=== PATIENT | female | born 1960 | race Caucasian/White ===

== ENCOUNTER → 2017-10-05 | Outpatient (CLI) | payer OTHER ==
--- NOTE | 2017-10-05 09:10 | BD ---
EXAMINATION TYPE: MG DEXA axial skeleton. DATE OF EXAM: 10/05/2017 COMPARISON: 09/29/2013 CLINICAL HISTORY: Postmenopausal female Height: 66 IN Weight: 141 LBS FRAX RISK QUESTIONS: Alcohol (3 or more units per day): NO Family History (Parent hip fracture): NO Glucocorticoids (More than 3mos): NO (Ex: prednisone, prednisolone, methylprednisolone, dexamethasone, and hydrocortisone). History of Fracture in Adulthood: NO Secondary Osteoporosis: 1. Type 1 Diabetes: NO 2. Hyperthyroidism: NO 3. Menopause before 45: NO 4. Malnutrition: NO 5. Chronic liver disease: NO Rheumatoid Arthritis: NO Current Tobacco Use: NO RISK FACTORS HISTORY OF: Active: YES Postmenopausal woman: AGE 50 MEDICATIONS: Additional Medications: NONE EXAM MEASUREMENTS: Bone mineral densitometry was performed using the Leevia System. Bone mineral density as measured about the Lumbar spine is: ----- L1-L4(G/cm2): 1.084 T Score Values are as follows: ----- L2: -0.8 ----- L3: -1.2 ----- L4: -1.2 ----- L1-L4: -0.8 Bone mineral density has: Decreased -2.5% since study of: 09/29/2013 Bone mineral density about the R hip (g/cm2): 0.883 Bone mineral density about the L hip (g/cm2): 0.834 T Score values are as follows: -----R Neck: -1.1 -----L Neck: -1.5 -----R Total: -0.8 -----L Total: -1.2 Bone mineral density has: Decreased -5.9% since study of: 09/29/2013 IMPRESSION: Osteopenia (T Score between -2.5 and -1 as noted by T score values There is slightly increased risk of fracture and the patient may be considered for treatment. Re-Screen 2-5 years. NOTE: T-SCORE=SD OF THE YOUNG ADULT MEAN.
--- NOTE | 2017-10-08 10:34 | MM ---
Reason for exam: screening (asymptomatic). Last mammogram was performed 1 year and 1 month ago. History: Patient is postmenopausal. Physical Findings: A clinical breast exam by your physician is recommended on an annual basis and results should be correlated with mammographic findings. MG 3D Screening Mammo W/Cad Bilateral CC and MLO view(s) were taken. Prior study comparison: September 07, 2016, bilateral MG screening mammo w CAD. July 01, 2015, bilateral MG screening mammo w CAD. The breast tissue is heterogeneously dense. This may lower the sensitivity of mammography. Stable benign calcifications in the right breast. There is chronic nodularity bilaterally. No significant changes when compared with prior studies. ASSESSMENT: Benign, BI-RAD 2 RECOMMENDATION: Routine screening mammogram of the right breast in 1 year.
== END | disposition home or self-care (01) ==
LOC: RADMAMWWP 08:13
PROVIDERS: ATTEND Obstetrics & Gynecology
DX: Z12.31 Encounter for screening mammogram for malignant neoplasm of breast (principal); M85.852 Other specified disorders of bone density and structure, left thigh; M85.851 Other specified disorders of bone density and structure, right thigh; M85.88 Other specified disorders of bone density and structure, other site
CPT/HCPCS: 77080; 77063; G0202

== ENCOUNTER → 2018-12-26 | Outpatient (CLI) | payer OTHER ==
--- NOTE | 2018-12-30 08:33 | MM ---
Reason for exam: screening (asymptomatic). Last mammogram was performed 1 year and 3 months ago. History: Patient is postmenopausal. Physical Findings: A clinical breast exam by your physician is recommended on an annual basis and results should be correlated with mammographic findings. MG Screening Mammo w CAD Bilateral CC and MLO view(s) were taken. XCCL view(s) were taken of the right breast. Prior study comparison: October 05, 2017, bilateral MG 3d screening mammo w/cad. September 07, 2016, bilateral MG screening mammo w CAD. The breast tissue is heterogeneously dense. This may lower the sensitivity of mammography. Finding: There are typically benign dystrophic, round calcifications in both breasts. There is no discrete abnormality. ASSESSMENT: Benign, BI-RAD 2 RECOMMENDATION: Routine screening mammogram of both breasts in 1 year.
== END | disposition home or self-care (01) ==
LOC: RADMAMWWP 07:59
PROVIDERS: ATTEND Obstetrics & Gynecology
DX: Z12.31 Encounter for screening mammogram for malignant neoplasm of breast (principal)
CPT/HCPCS: 77067

== ENCOUNTER 2019-11-25 01:31 | Emergency (ER) | payer OTHER, BC ==
--- NOTE | 2019-11-25 02:30 | ED ---
Chest Pain HPI - General Chief Complaint: Chest Pain Stated Complaint: Chest Tightness Source: patient, family Mode of arrival: ambulatory Limitations: no limitations - History of Present Illness Initial Comments: 's patient is a 59-year-old woman who presents with chest pain that it started approximately 4 hours prior to arrival here. She states it is across the chest. It felt like a heavy feeling. She states that it came on while she was lying down. She did note that it was worse if she tried to lie on her side. She did not note any relieving factors. Patient did not have any associated symptoms. The patient does note that the pain has resolved, after her arrival here. MD Complaint: chest pain -: hour(s) Onset: during rest Pain Location: left chest, right chest Pain Radiation: none Severity: mild Quality: heaviness Consistency: now resolved Improves With: nothing Worsens With: nothing Treatments Prior to Arrival: none - Related Data On Oral Contraceptives: No Allergies Allergy/AdvReac Type Severity Reaction Status Date / Time No Known Allergies Allergy Verified 11/25/19 01:38 Review of Systems ROS Statement: Those systems with pertinent positive or pertinent negative responses have been documented in the HPI. ROS Other: All systems not noted in ROS Statement are negative. Constitutional: Denies: fever, chills Respiratory: Denies: cough, dyspnea Cardiovascular: Reports: chest pain. Denies: palpitations, orthopnea, edema, syncope Gastrointestinal: Denies: abdominal pain, nausea, vomiting Musculoskeletal: Denies: back pain Skin: Denies: rash Neurological: Denies: headache, weakness EKG Findings - EKG Results: EKG: interpreted by ERMD, sinus rhythm (Rate 62 bpm), normal axis, normal QRS, normal ST/T Past Medical History Past Medical History: No Reported History History of Any Multi-Drug Resistant Organisms: None Reported Past Surgical History: Section Past Psychological History: No Psychological Hx Reported Smoking Status: Never smoker Past Alcohol Use History: None Reported Past Drug Use History: None Reported General Exam Limitations: no limitations General appearance: alert, in no apparent distress Head exam: Present: atraumatic, normocephalic Eye exam: Present: normal appearance. Absent: scleral icterus, conjunctival injection ENT exam: Present: normal oropharynx Neck exam: Present: normal inspection Respiratory exam: Present: normal lung sounds bilaterally. Absent: respiratory distress, wheezes, rales, rhonchi, stridor, chest wall tenderness, accessory muscle use, decreased breath sounds, prolonged expiratory Cardiovascular Exam: Present: regular rate, normal rhythm, normal heart sounds. Absent: systolic murmur, diastolic murmur, rubs, gallop GI/Abdominal exam: Present: soft. Absent: distended, tenderness, guarding, rebound, rigid, mass Extremities exam: Present: normal inspection, normal capillary refill. Absent: pedal edema, calf tenderness Back exam: Present: normal inspection. Absent: CVA tenderness (R), CVA tenderness (L) Neurological exam: Present: alert Skin exam: Present: warm, dry, intact, normal color. Absent: rash Course Vital Signs 11/25/19 11/25/19 11/25/19 01:34 05:38 06:00 Temperature 98.1 F 98.3 F 97.7 F Pulse Rate 74 77 74 Respiratory 20 20 18 Rate Blood Pressure 164/87 123/81 127/79 O2 Sat by Pulse 99 97 97 Oximetry 11/25/19 07:00 Temperature 97.6 F Pulse Rate 62 Respiratory 20 Rate Blood Pressure 132/80 O2 Sat by Pulse 97 Oximetry Disposition Clinical Impression: Chest pain Disposition: HOME SELF-CARE Condition: Good Instructions (If sedation given, give patient instructions): Chest Pain (ED) Is patient prescribed a controlled substance at d/c from ED?: No Referrals: Christina Yost MD [Primary Care Provider] - 1-2 days Dipika Hooper MD [STAFF PHYSICIAN] - 1-2 days
[2019-11-25 03:32] LABS: Basophils % (A) 1 %; Eosinophils # (A) 0.2 k/uL (0-0.7); Eosinophils % (A) 4 %; HCT 38.7 % (34.0-46.0); HGB 13.5 gm/dL (11.4-16.0); Lymphocytes # (A) 1.6 k/uL (1.0-4.8); Lymphocytes % (A) 24 %; MCH 29.9 pg (25.0-35.0); MCHC 34.9 g/dL (31.0-37.0); MCV 85.7 fL (80.0-100.0); Mean Platelet Volume 8.3; Monocytes # (A) 0.4 k/uL (0-1.0); Monocytes % (A) 6 %; Neutrophils # (A) 4.1 k/uL (1.3-7.7); Neutrophils % (A) 64 %; Platelet Count 175 k/uL (150-450); RBC 4.52 m/uL (3.80-5.40); RDW 12.2 % (11.5-15.5); WBC 6.4 k/uL (3.8-10.6)
[2019-11-25 03:41] LABS: ALT 19 U/L (4-34); AST 28 U/L (14-36); African American GFR (CKD) >90 (>60 ml/min/1.73 sqM); Albumin 4.3 g/dL (3.5-5.0); Alkaline Phosphatase 103 U/L (38-126); Amylase 111 U/L (30-110); Anion Gap 7 mmol/L; Blood Urea Nitrogen 21 mg/dL (7-17); Calcium 10.3 mg/dL (8.4-10.2); Carbon Dioxide 27 mmol/L (22-30); Chloride 105 mmol/L (98-107); Glucose 106 mg/dL (74-99); Magnesium 2.1 mg/dL (1.6-2.3); Non-African American GFR(CKD) >90 (>60 ml/min/1.73 sqM); Potassium 4.2 mmol/L (3.5-5.1); Sodium 139 mmol/L (137-145); Total Bilirubin 0.4 mg/dL (0.2-1.3); Total Protein 7.3 g/dL (6.3-8.2)
--- NOTE | 2019-11-25 03:44 | XR ---
EXAMINATION TYPE: XR chest 2V DATE OF EXAM: 11/25/2019 COMPARISON: NONE HISTORY: Chest pain TECHNIQUE: 2 views FINDINGS: Heart and mediastinum are normal. Lungs are clear. Diaphragm is normal. Bony thorax appears intact. There is no pleural effusion. IMPRESSION: No cardiopulmonary disease.
[2019-11-25 03:48] LABS: INR 0.9 (<1.2); Partial Thromboplastin Time 24.9 sec (22.0-30.0); Prothrombin Time 9.7 sec (9.0-12.0)
[2019-11-25 03:50] LABS: D-Dimer 1.03 mg/L FEU (<0.60)
[2019-11-25 07:06] VITALS: BP 132/80; PULSE 62; RESP 20; TEMP 97.6
== END 2019-11-25 07:16 | disposition home or self-care (01) ==
LOC: EC 01:31
DX: R07.9 Chest pain, unspecified (principal)
CPT/HCPCS: 36415; 71046; 80053; 82150; 83690; 83735; 84484; 85025; 85379; 85610; 85730; 93005; 99285

== ENCOUNTER → 2021-04-08 | Outpatient (CLI) | payer OTHER, BC ==
--- NOTE | 2021-04-13 10:17 | MM ---
Reason for exam: screening (asymptomatic). Last mammogram was performed 2 years and 3 months ago. History: Patient is postmenopausal. Physical Findings: A clinical breast exam by your physician is recommended on an annual basis and results should be correlated with mammographic findings. MG 3D Screening Mammo W/Cad Bilateral CC and MLO view(s) were taken. Prior study comparison: December 26, 2018, bilateral MG screening mammo w CAD. October 05, 2017, bilateral MG 3d screening mammo w/cad. The breast tissue is extremely dense which could obscure a lesion on mammography. ASSESSMENT: Benign, BI-RAD 2 RECOMMENDATION: Routine screening mammogram of both breasts in 1 year.
== END | disposition home or self-care (01) ==
LOC: RADMAMWWP 11:08
PROVIDERS: ATTEND Obstetrics & Gynecology
DX: Z12.31 Encounter for screening mammogram for malignant neoplasm of breast (principal); Z78.0 Asymptomatic menopausal state
CPT/HCPCS: 77063; 77067

== ENCOUNTER → 2022-01-26 | Outpatient (CLI) | payer OTHER ==
--- NOTE | 2022-01-26 17:00 | ECHOF ---
Referral Reason:R06.09 Other forms of dyspnea MEASUREMENTS -------- HEIGHT: 167.6 cm WEIGHT: 62.6 kg BP: 131/77 RVIDd: 2.6 cm (< 3.3) IVSd: 0.9 cm (0.6 - 1.1) LVIDd: 3.8 cm (3.9 - 5.3) LVPWd: 0.9 cm (0.6 - 1.1) IVSs: 1.3 cm LVIDs: 2.5 cm LVPWs: 1.5 cm LA Diam: 3.0 cm (2.7 - 3.8) LAESV Index (A-L): 20.65 ml/m Ao Diam: 2.7 cm (2.0 - 3.7) AV Cusp: 1.8 cm (1.5 - 2.6) MV EXCURSION: 14.946 mm (> 18.000) MV EF SLOPE: 108 mm/s (70 - 150) EPSS: 0.2 cm MV E Claudio: 1.01 m/s MV DecT: 204 ms MV A Claudio: 0.65 m/s MV E/A Ratio: 1.57 AR PHT: 556 ms RAP: 5.00 mmHg RVSP: 23.29 mmHg FINDINGS -------- Sinus rhythm. This was a technically good study. The left ventricular size is normal. Left ventricular wall thickness is normal. Overall left vent ricular systolic function is normal with, an EF between 55 - 60 %. The right ventricle is normal in size. Normal LA size by volume 22+/-6 ml/m2. The right atrium is normal in size. Interatrial and interventricular septum intact. Trace to mild aortic regurgitation. There is trace mitral regurgitation. Mild tricuspid regurgitation present. Right ventricular systolic pressure is normal at < 35 mmHg. The pulmonic valve is normal. The aortic root size is normal. Normal inferior vena cava with normal inspiratory collapse consistent with estimated right atrial pre ssure of 5 mmHg. There is no pericardial effusion. CONCLUSIONS -------- 1. The left ventricular size is normal. 2. Left ventricular wall thickness is normal. 3. Overall left ventricular systolic function is normal with, an EF between 55 - 60 %. 4. Trace to mild aortic regurgitation. 5. There is trace mitral regurgitation. 6. Mild tricuspid regurgitation present. 7. There is no pericardial effusion. [employer] BACK TENDER: Livia Rawls RDCS
== END | disposition home or self-care (01) ==
LOC: RADECHMAIN 14:41
PROVIDERS: ATTEND Family Medicine
DX: I08.3 Combined rheumatic disorders of mitral, aortic and tricuspid valves (principal)
CPT/HCPCS: 93306

== ENCOUNTER → 2022-05-25 | Outpatient (CLI) | payer OTHER ==
--- NOTE | 2022-05-26 09:19 | MM ---
Reason for Exam: Screening (asymptomatic). Last mammogram was performed 1 year(s) and 2 month(s) ago. Patient History: Menarche at age 15. First Full-Term at age 23. Postmenopausal. Risk Values: Shanika 5 year model risk: 1.2%. NCI Lifetime model risk: 5.8%. Prior Study Comparison: 10/05/2017 Bilateral Screening Mammogram, [facility]. 12/26/2018 Bilateral Screening Mammogram, [facility]. 04/08/2021 Bilateral Screening Mammogram, [facility]. Tissue Density: The breast tissue is heterogeneously dense. This may lower the sensitivity of mammography. Findings: Analyzed By CAD. There are a few scattered benign-appearing calcifications bilaterally redemonstrated. There is no suspicious group of microcalcifications or new suspicious mass in either breast. Overall Assessment: Benign, BI-RAD 2 Management: Screening Mammogram of both breasts in 1 year. Some advise bilateral breast ultrasound surveillance in patients with background dense tissue. Electronically signed and approved by: Gerardo Tidwell M.D.
== END | disposition home or self-care (01) ==
LOC: RADMAMWWP 10:47
PROVIDERS: ATTEND Obstetrics & Gynecology
DX: Z12.31 Encounter for screening mammogram for malignant neoplasm of breast (principal); Z78.0 Asymptomatic menopausal state
CPT/HCPCS: 77063; 77067

== ENCOUNTER 2022-10-24 08:22 | Day surgery (SDC) | payer OTHER ==
[~2022-10-24 08:22] MED LIST: LACTATED RINGERS 1,000 ML IV SCH; LIDOCAINE 1% (10MG/ML) FOR IV START INTRADERMA PRN
[2022-10-24 09:22] VITALS: TEMP 97.7
[2022-10-24] MEDS ORDERED: PROPOFOL 10 MG/ML 20 ML VIAL IV ONE (09:47)
--- NOTE | 2022-10-24 09:50 | P.GSHP ---
History of Present Illness H&P Date: 10/24/22 Chief Complaint: Colon cancer screening 62-year-old female here today for colonoscopy. Last colonoscopy 10-12 years ago. No bowel complaints. Family history of colon cancer in her father. Past Medical History Past Medical History: No Reported History History of Any Multi-Drug Resistant Organisms: None Reported Past Surgical History: Section Past Anesthesia/Blood Transfusion Reactions: No Reported Reaction Smoking Status: Never smoker Medications and Allergies Home Medications Medication Instructions Recorded Confirmed Type No Known Home Medications 01/09/22 10/24/22 History Allergies Allergy/AdvReac Type Severity Reaction Status Date / Time No Known Allergies Allergy Verified 10/24/22 09:19 Surgical - Exam Vital Signs Temp Pulse Resp BP Pulse Ox 97.7 F 66 18 122/66 98 10/24/22 09:16 10/24/22 09:16 10/24/22 09:16 10/24/22 09:16 10/24/22 09:16 Physical exam: General: Well-developed, well-nourished HEENT: Normocephalic, sclerae nonicteric Abdomen: Nontender, nondistended Extremities: No edema Neuro: Alert and oriented Assessment and Plan (1) Colon cancer screening Narrative/Plan: Will proceed with colonoscopy at this time. Current Visit: Yes Status: Acute Code(s): Z12.11 - ENCOUNTER FOR SCREENING FOR MALIGNANT NEOPLASM OF COLON SNOMED Code(s): 901222714
--- NOTE | 2022-10-24 10:14 | P.PCN ---
Date of Procedure: 10/24/22 Procedure(s) Performed: PREOPERATIVE DIAGNOSIS: Colon cancer screening, family history of colon cancer POSTOPERATIVE DIAGNOSIS: Small ascending colon polyp, tortuous colon PROCEDURE: Colonoscopy with biopsy ANESTHESIA: MAC SURGEON: Hank Avina M.D. SPECIMENS: Polyp ENDOSCOPIC PROCEDURE: The patient was placed on the endoscopy table in the left decubitus position. The Olympus colonoscope was inserted into the anus and passed under direct visualization to the base of the cecum. The appendiceal orifice was visualized. From that point the scope was slowly withdrawn inspecting all surfaces carefully. There were no neoplastic inflammatory or polypoid lesions throughout the cecum. In the ascending colon a small polyp was seen and removed using the snare with cautery technique. The remainder of the ascending transverse descending sigmoid and rectum appeared normal. There was no visible diverticulosis. The patient's colon was quite tortuous. Digital rectal examination was normal. The patient was taken to the recovery room in stable condition per anesthesia guidelines. RECOMMENDATIONS: Resume diet. Await biopsy results. Repeat colonoscopy 5 years.
[2022-10-24 10:29] VITALS: RESP 16
[2022-10-24 10:33] VITALS: BP 126/83; PULSE 72
== END 2022-10-24 10:57 | disposition home or self-care (01) ==
LOC: ORWHC2ENDO 08:22
PROVIDERS: ATTEND Surgery
DX: Z12.11 Encounter for screening for malignant neoplasm of colon (principal); D12.2 Benign neoplasm of ascending colon; Z80.0 Family history of malignant neoplasm of digestive organs
CPT/HCPCS: 88305; 45380; J2704

== ENCOUNTER → 2023-05-29 | Outpatient (CLI) | payer BC ==
--- NOTE | 2023-05-30 10:10 | MM ---
Reason for Exam: Screening (asymptomatic). Last screening mammogram was performed 12 month(s) ago. Patient History: Menarche at age 15. First Full-Term at age 23. Postmenopausal. Risk Values: Shanika 5 year model risk: 1.2%. NCI Lifetime model risk: 5.7%. Prior Study Comparison: 12/26/2018 Bilateral Screening Mammogram, [facility]. 04/08/2021 Bilateral Screening Mammogram, [facility]. 05/25/2022 Bilateral MG 3D screening mammo w/cad, [facility]. Tissue Density: The breast tissue is extremely dense which could obscure a lesion on mammography. Findings: Analyzed By CAD. There appears symmetrical and stable. No significant interval change is evident. Benign calcifications in the right breast. No suspicious groups of microcalcifications, spiculated or lobular masses, architectural distortion or other secondary signs of malignancy are mammographically apparent. Overall Assessment: Benign, BI-RAD 2 Management: Screening Mammogram of both breasts in 1 year. A negative mammogram report should not preclude additional follow up of suspicious palpable abnormalities. Patient should continue monthly self breast exam. A clinical breast exam by your physician is recommended on an annual basis and results should be correlated with mammographic findings. Electronically signed and approved by: Michael Velasquez D.O. Radiologis
== END | disposition home or self-care (01) ==
LOC: RADMAMWWP 10:54
PROVIDERS: ATTEND Family Medicine
DX: Z12.31 Encounter for screening mammogram for malignant neoplasm of breast (principal); Z78.0 Asymptomatic menopausal state
CPT/HCPCS: 77063; 77067

== ENCOUNTER → 2024-06-05 | Outpatient (CLI) | payer BC, OTHER ==
--- NOTE | 2024-06-08 11:45 | MM ---
Reason for Exam: Screening (asymptomatic). Last screening mammogram was performed 12 month(s) ago. Patient History: Menarche at age 15. First Full-Term at age 23. Postmenopausal. Risk Values: Shanika 5 year model risk: 1.3%. NCI Lifetime model risk: 5.5%. Prior Study Comparison: 04/08/2021 Bilateral Screening Mammogram, [facility]. 05/25/2022 Bilateral MG 3D screening mammo w/cad, [facility]. 05/29/2023 Bilateral MG 3D screening mammo w/cad, [facility]. Tissue Density: The breasts are extremely dense, which lowers the sensitivity of mammography. Findings: Analyzed By CAD. The pattern is symmetrical. No significant interval change No suspicious groups of microcalcifications, spiculated or lobular masses, architectural distortion or other secondary signs of malignancy are mammographically apparent. Overall Assessment: Benign, BI-RAD 2 Management: Screening Mammogram of both breasts in 1 year. A negative mammogram report should not preclude additional follow up of suspicious palpable abnormalities. Patient should continue monthly self breast exam. A clinical breast exam by your physician is recommended on an annual basis and results should be correlated with mammographic findings. Note on Shanika scores and lifetime risk: 1. A Shanika score greater than 3% is considered moderate risk. If this is the case, consider specialist referral to assess eligibility for a risk reducing agent. 2. If overall lifetime risk for the development of breast cancer is 20% or higher, the patient may qualify for future screening with alternating mammogram and breast MRI. Electronically signed and approved by: Michael Velasquez D.O. Radiologis
== END | disposition home or self-care (01) ==
LOC: RADMAMWWP 11:19
PROVIDERS: ATTEND Family Medicine
DX: Z12.31 Encounter for screening mammogram for malignant neoplasm of breast (principal); Z78.0 Asymptomatic menopausal state
CPT/HCPCS: 77063; 77067